=== PATIENT | female | born 1960 | race Caucasian/White ===

== ENCOUNTER → 2017-04-01 | Outpatient (CLI) | payer OTHER ==
--- NOTE | 2017-04-01 19:49 | KCIC ---
Bilateral digital screening mammograms: Reason for examination: Routine screening. Comparison is made to previous study dated 08/19/2013. The skin and nipples show no abnormalities. No abnormal axillary lymph nodes are seen. The breast parenchyma shows scattered fibroglandular density. (Breast density: Category B.) There are no dominant masses, suspicious calcifications or architectural distortions. A few benign calcifications are present. Impression: No evidence of malignancy. Recommend routine screening. BI-RADS category 2: Benign "Our facility is accredited by the [employer] Mammography Program." This patient's information has been entered into a reminder system for the patient to be notified with the results of her examination and a target date for the next mammogram. Electronically signed by: Ayana Bunch MD (04/01/2017 7:45 PM)
== END | disposition home or self-care (01) ==
LOC: KCIC MAMMO 13:11
PROVIDERS: ATTEND Family Medicine
DX: Z12.31 Encounter for screening mammogram for malignant neoplasm of breast (principal)
CPT/HCPCS: G0202; 77067

== ENCOUNTER → 2017-08-14 | Outpatient (CLI) | payer OTHER ==
--- NOTE | 2017-08-14 12:36 | KCIC ---
FOOT LEFT 3V Indication: Left foot pain. Attention the proximal second and third metatarsals. Possible stress fractures. . Comparison: None FINDINGS: There is some questionable minimal periosteal elevation at the third metatarsal shaft. No gross fracture identified. No bone destruction. Joint spaces intact. Alignment intact. Bifid appearance of the medial hallux sesamoid. Plantar calcaneal spur. Impression: Suggestion of minimal periosteal elevation of the third metatarsal shaft. Conceivably this could indicate underlying stress fracture. Consider further workup with MRI, which could detect a stress fracture or stress reaction with greater sensitivity. Electronically signed by: Jesús Jo MD (08/14/2017 12:32 PM) [facility]
== END | disposition home or self-care (01) ==
LOC: KCIC 10:20
PROVIDERS: ATTEND Family Medicine
DX: M77.32 Calcaneal spur, left foot (principal)
CPT/HCPCS: 73630

== ENCOUNTER → 2017-08-26 | Outpatient (CLI) | payer OTHER ==
--- NOTE | 2017-08-26 15:20 | KCIC ---
MR of the left foot HISTORY: Pain for about 3 weeks at the top of the midfoot. No known injury. FINDINGS: No bone marrow edema, acute fracture or periosteal reaction. No bone lesion or bone destruction. Lisfranc ligament complex is intact as is tarsometatarsal alignment. No evidence of tendon rupture or significant tendon sheath fluid. Subtalar joints are patent. Tarsal sinus is intact. The plantar aponeurosis is incompletely visualized but does appear thickened near the calcaneal attachment. No significant joint effusion. No abnormal soft tissue edema or fluid collection. The medial hallux sesamoid is divided. There is marrow edema within the medial hallux sesamoid. IMPRESSION: 1. Bifid medial hallux sesamoid with edema. Findings could represent a posttraumatic fracture, or developmental variant with marrow contusion, sesamoiditis or stress injury. 2. No evidence of metatarsal stress fracture or stress reaction. 3. Partially visualized plantar aponeurosis demonstrates evidence of plantar fasciitis. Electronically signed by: Jesús Jo MD (08/26/2017 3:17 PM) [id number]
== END | disposition home or self-care (01) ==
LOC: KCIC MRI 14:14
PROVIDERS: ATTEND Physician Assistant Medical
DX: M72.2 Plantar fascial fibromatosis (principal)
CPT/HCPCS: 73718